=== PATIENT | female | born 1970 | race American Indian/Alaskan Native ===

== ENCOUNTER 2019-06-05 08:33 | Day surgery (SDC) | payer OTHER, MEDICARE ==
[~2019-06-05 08:33] MED LIST: SODIUM CHLORIDE 0.9% 1000 ML 1,000 ML IV SCH
[2019-06-05] MEDS ORDERED: LIDOCAINE MPF (2%) 20 MG/1 ML VIAL 5 ML ONE (09:00)
[2019-06-05] MEDS ORDERED: WATER FOR IRRIG STERILE 250 ML BOTTLE IR ONE (09:02)
--- NOTE | 2019-06-05 09:27 | Anesthesia Day of Surgery ---
Anesthesia Day of Surgery - Day of Surgery Patient Examined: Yes Patient H&P Reviewed: Yes Patient is NPO: Yes
--- NOTE | 2019-06-05 09:30 | Anesthesia Consultation ---
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
[2019-06-05] MEDS ORDERED: propofoL 200 MG/20 ML VIAL IV ONE (09:33)
--- NOTE | 2019-06-05 10:26 | Short Stay Summary ---
Short Stay Documentation Date of service: 06/05/19 Narrative H&P: The patient is a 48 yo aaf with h/o cva who presents for screening colonoscopy; no new gi complaints since clinic visit. - History Past Medical History: other (no changes from clinic note) Past Surgical History: Other (no changes in clinic note) Social history: no significant social history - Allergies and Medications Current Medications: Allergies No Known Allergies Allergy (Verified 12/23/17 13:16) Home Medications Medication Instructions Recorded Confirmed Last Taken Type Cilostazol [Pletal] 50 mg PO BID 12/23/17 06/05/19 06/04/19 History Clopidogrel Bisulfate [Clopidogrel] 75 mg PO DAILY 12/23/17 06/05/19 05/28/19 History Diclofenac 1% [Diclofenac 1% 1 dose TRANSDERMA BID 12/23/17 06/05/19 12/30/17 17:00 History topical gel] Losartan Potassium 50 mg PO DAILY 12/23/17 06/05/19 06/05/19 History Pantoprazole Sodium 40 mg PO QAM 12/23/17 06/05/19 06/04/19 History Pravastatin [Pravachol] 20 mg PO DAILY 12/23/17 06/05/19 06/04/19 History metFORMIN XR [Glucophage XR] 1,000 mg PO BID 12/23/17 06/05/19 06/04/19 History Aspirin 325 mg pe PO DAILY 06/05/19 06/05/19 05/28/19 History Cyclobenzaprine HCl 10 mg PO DAILY PRN 06/05/19 06/05/19 Unknown History Active Medications Sodium Chloride (Nacl 0.9% 1000 Ml) 1,000 mls @ 50 mls/hr IV DIRECT CHIQUITA - Physical exam General appearance: no acute distress, obese Lungs: Clear to auscultation Heart: Regular rate, Normal S1, Normal S2 Gastrointestinal: normal - Brief post op/procedure progress note Date of procedure: 06/05/19 Pre-op diagnosis: Screening colonoscopy Post-op diagnosis: same (small colon polyp removed) Procedure: Colonoscopy with biopsy polypectomy Anesthesia: MAC Findings: small colon polyp removed fair prep Surgeon: DAMION ANDRADE Estimated blood loss: minimal Pathology: list (ascending colon polyp removed) Specimen disposition: to lab Condition: stable - Disposition Condition at discharge: Good Disposition: DC-01 TO HOME OR SELFCARE Short Stay Discharge Plan Follow up with: GAURAV DE LA TORRE JR, MD [Primary Care Provider] - 7 Days
--- NOTE | 2019-06-05 10:27 | Operative Report ---
Operative Report Operative Report: Colonoscopy Procedure Note with cold biopsy polypectomy Date of procedure: 06/05/2019 Endoscopist: James Saini Pre-op diagnosis/indication: Screening for colorectal cancer Post-op diagnosis: Small colon polyp removed MEDICATIONS: MAC COMPLICATIONS: No immediate complications ESTIMATED BLOOD LOSS: Minimal DESCRIPTION OF PROCEDURE: After consent was obtained, the patient was placed in the left lateral decubitis position. The olympus colonoscope was inserted into the rectum under direct vision, and advanced to the cecum without difficulty. The quality of prep was fair. The patient tolerated the procedure well. The patient's vital signs were monitored continuously throughout the procedure. FINDINGS: There was an ~2 mm sessile polyp in the ascending colon. The polyp was removed with cold biopsy forceps and retrieved. IMPRESSION: 1. Fair prep 2. Small colon polyp removed with cold biopsy forceps RECOMMENDATIONS: -follow up pathology -repeat colonoscopy in 5 years
[2019-06-05 11:08] VITALS: BP 155/87
[2019-06-05] MEDS ORDERED: WATER FOR IRRIG STERILE 1,000 ML BOTTLE ONE (11:40)
--- NOTE | 2019-06-05 23:10 | Post Anesthesia Evaluation ---
- Post Anesthesia Evaluation Patient Participated: Yes Airway Patent: Yes Stable Respiratory Function: Yes Nausea/Vomiting: No Temp > 96.8F: Yes Pain Manageable: Yes Adequeate Hydration: Yes Anesthesia Complications: No Block Receding Appropriately: Not Applicable Patient on Ventilator: No
== END 2019-06-05 08:34 | disposition home or self-care (01) ==
LOC: GIO 08:33
PROVIDERS: ATTEND Internal Medicine Gastroenterology
DX: Z12.11 Encounter for screening for malignant neoplasm of colon (principal); D12.2 Benign neoplasm of ascending colon; I10 Essential (primary) hypertension; E11.9 Type 2 diabetes mellitus without complications; E66.9 Obesity, unspecified; K21.9 Gastro-esophageal reflux disease without esophagitis; M19.90 Unspecified osteoarthritis, unspecified site; Z79.84 Long term (current) use of oral hypoglycemic drugs; Z79.899 Other long term (current) drug therapy; Z90.49 Acquired absence of other specified parts of digestive tract; Z98.890 Other specified postprocedural states; Z68.41 Body mass index [BMI] 40.0-44.9, adult
CPT/HCPCS: 45380; 88305; J2704; J7030